=== PATIENT | female | born 1945 | race African-American/Black ===

== ENCOUNTER 2023-01-31 10:38 | Emergency (ER) | payer OTHER ==
[~2023-01-31] VITALS: Ht 165.1 cm; Wt 90.0 kg
[2023-01-31 10:53] VITALS: O2SAT 97
[2023-01-31 11:15] VITALS: BP 167/80; PULSE 84; RESP 16; TEMP 98.3
[2023-01-31] MEDS ORDERED: IBUPROFEN 600MG TABLET PO ONE (11:15)
[2023-01-31] MEDS ORDERED: ACETAMINOPHEN 325MG TABLET PO ONE (11:15)
[2023-01-31] MEDS ORDERED: METH-653 MT (13:19)
[2023-01-31] MEDS ORDERED: IBUP-2029 MT (13:19)
== END 2023-01-31 17:42 | disposition home or self-care (01) ==
LOC: ER 11:15
DX: S29.011A Strain of muscle and tendon of front wall of thorax, initial encounter (principal); I10 Essential (primary) hypertension; Z88.8 Allergy status to other drugs, medicaments and biological substances; V89.2XXA Person injured in unspecified motor-vehicle accident, traffic, initial encounter; Y93.89 Activity, other specified; Y92.89 Other specified places as the place of occurrence of the external cause; Y99.8 Other external cause status
CPT/HCPCS: 71045; 93005; 99283